=== PATIENT | male | born 1965 | race American Indian/Alaskan Native ===

== ENCOUNTER 2019-11-06 14:39 | Emergency (ER) | payer MEDICAID ==
[2019-11-06 15:07] VITALS: BP 122/63
[2019-11-06] MEDS ORDERED: SODIUM CHLORIDE 0.9% 500 ML 500 ML IV ONE (15:34)
[2019-11-06 15:50] LABS: Basophils % (Auto) 0.4 % (0.0-1.8); Eosinophils # (Auto) 0.1 K/mm3 (0.0-0.4); Eosinophils % (Auto) 0.8 % (0.0-4.3); Hematocrit 32.3 % (35.5-45.6); Hemoglobin 10.6 gm/dl (11.8-15.2); Lymphocytes % (Auto) 9.3 % (13.4-35.0); Mean Corpuscular HGB Conc 33 % (32-34); Mean Corpuscular Volume 87 fl (84-94); Monocytes # (Auto) 0.6 K/mm3 (0.0-0.8); Monocytes % (Auto) 5.3 % (0.0-7.3); Platelet Count 168 K/mm3 (140-440); Red Blood Count 3.72 M/mm3 (3.65-5.03); Red Cell Distribution Width 15.8 % (13.2-15.2)
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
== END 2019-11-06 18:07 | disposition home or self-care (01) ==
LOC: ED 14:39
DX: I12.9 Hypertensive chronic kidney disease with stage 1 through stage 4 chronic kidney disease, or unspecified chronic kidney disease (principal); N18.9 Chronic kidney disease, unspecified; E78.00 Pure hypercholesterolemia, unspecified; Z86.73 Personal history of transient ischemic attack (TIA), and cerebral infarction without residual deficits; Z98.890 Other specified postprocedural states; W17.89XA Other fall from one level to another, initial encounter; Y93.89 Activity, other specified; Y92.89 Other specified places as the place of occurrence of the external cause; Y99.8 Other external cause status
CPT/HCPCS: 36415; 80048; 85025; 93005; 93010; 99284; J7040

== ENCOUNTER 2021-09-08 22:57 | Emergency (ER) | payer MEDICAID ==
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
[2021-09-09 01:11] LABS: Bilirubin,Urine NEG (Negative); Blood,Urine LG (Negative); Color,Urine Amber (Yellow); Mucus,Urine 3+ /HPF
[2021-09-09 01:12] LABS: RBC,Urine > 182.0 /HPF (0.0-6.0); WBC,Urine > 182.0 /HPF (0.0-6.0)
[2021-09-09 01:24] LABS: Basophils % (Auto) 0.9 % (0.0-1.8); Eosinophils % (Auto) 1.6 % (0.0-4.3); Lymphocytes # (Auto) 0.5 K/mm3 (1.2-5.4); Lymphocytes % (Auto) 19.8 % (13.4-35.0); Mean Corpuscular HGB Conc 31 % (32-34); Mean Corpuscular Volume 89 fl (84-94); Monocytes % (Auto) 0.9 % (0.0-7.3); Red Blood Count 5.01 M/mm3 (3.65-5.03); Red Cell Distribution Width 14.8 % (13.2-15.2)
[2021-09-09 01:49] LABS: Albumin 4.4 g/dL (3.9-5); Bilirubin,Direct 0.2 mg/dL (0-0.2); Calcium 9.1 mg/dL (8.4-10.2)
[2021-09-09 02:07] LABS: Hematocrit 44.4 % (35.5-45.6); Hemoglobin 13.7 gm/dl (11.8-15.2); Platelet Count 126 K/mm3 (140-440)
[2021-09-09] MEDS ORDERED: cefTRIAXone/NS 1 GM/50 ML 1 GM/50 ML BAG IV ONE (02:49)
[2021-09-09] MEDS ORDERED: ONDANSETRON 4 MG/2 ML INJ IV ONE (02:49)
[2021-09-09] MEDS ORDERED: SODIUM CHLORIDE 0.9% 1000 ML 1,000 ML IV ONE (02:50)
[2021-09-09 04:09] VITALS: BP 130/67
== END 2021-09-09 05:10 | disposition home or self-care (01) ==
LOC: ED 22:57
DX: N39.0 Urinary tract infection, site not specified (principal); R11.2 Nausea with vomiting, unspecified; I10 Essential (primary) hypertension; E78.00 Pure hypercholesterolemia, unspecified; Z87.891 Personal history of nicotine dependence
CPT/HCPCS: 36415; 80048; 80076; 81001; 85025; 87076; 87086; 87186; 96365; 96375; 99284; J0696; J2405; J7030; Q0162